=== PATIENT | female | born 1945 | race Caucasian/White ===

== ENCOUNTER 2021-05-15 17:27 | Inpatient (IN) ==
[2021-05-15 19:04] LABS: Basophils % 0.6 %; Hemoglobin 15.5 g/dL (11.5-15.4); Immature Granulocytes % 0.6 % (0-4); Lymphocytes # 0.6 K/mcL (0.6-4.6); Lymphocytes % 17.6 %; Mean Corpuscular HGB Conc 33.7 g/dL (31.6-35.5); Mean Corpuscular Volume 83.2 fL (83.0-100.0); Mean Platelet Volume 10.7 fL (9.4-12.4); Monocytes # 0.2 K/mcL (0.0-1.3); Monocytes % 6.3 %; Neutrophils # 2.6 K/mcL (1.6-8.9); Platelet Count 143 K/mcL (140-400); Red Blood Count 5.53 M/mcL (3.82-4.97); Red Cell Distribution Width 13.9 % (11.5-14.5); Segmented Neutrophils % 74.9 %; White Blood Count 3.5 K/mcL (4.3-11.1)
[2021-05-15 19:07] LABS: VBG HCO3 25 mEq/L (21-27); VBG PCO2 43 mmHg (41-51); VBG PH 7.37 pH Units (7.32-7.42); VBG PO2 34 mmHg (25-50)
[2021-05-15 19:11] LABS: INR 1.2; Prothrombin Time 13.5 Seconds (9.4-12.1)
[2021-05-15 19:14] LABS: Activated Partial Thrombo Time 32.1 Seconds (26.0-36.0)
[2021-05-15 19:28] LABS: Alanine Aminotransferase 11 Units/L (7-52); Albumin 3.9 g/dL (3.5-5.7); Albumin/Globulin Ratio 1.4 (1.1-2.2); Alkaline Phosphatase 79 Units/L (34-104); Aspartate Amino Transferase 22 Units/L (13-39); BUN/Creatinine Ratio 14 (6-26); Bilirubin,Direct 0.1 mg/dL (0.0-0.2); Bilirubin,Indirect 0.4 mg/dL (0.0-1.0); Bilirubin,Total 0.5 mg/dL (0.3-1.0); Blood Urea Nitrogen 16 mg/dL (8-23); Calcium 8.3 mg/dL (8.6-10.3); Carbon Dioxide 25 mEq/L (23-29); Chloride 99 mEq/L (98-107); Creatine Kinase 159 Units/L (30-223); Ethanol < 10 mg/dL (Less than 10); Globulin 2.8 g/dL (2.4-3.5); Glucose 114 mg/dL (70-105); Osmolality,Calculated 282 (280-300); Potassium 3.3 mEq/L (3.5-5.1); Sodium 135 mEq/L (136-145); Total Protein 6.7 g/dL (6.4-8.9); eGFR For African Americans 57 (> 60); eGFR For Non-African Americans 47 (> 60)
[2021-05-15] MEDS ORDERED: Isovue-370 500 ML BOTTLE IVP ONE (19:37)
[2021-05-15 19:47] LABS: Influenza A PCR Negative (Negative); Influenza B PCR Negative (Negative); Resp. Syncytial Virus PCR Negative (Negative)
[2021-05-15 19:49] LABS: SARS-CoV-2 by PCR (In House) Positive (Negative)
[2021-05-15 20:27] LABS: Adenovirus F 40/41 PCR Not detected (Not detect); Astrovirus PCR Not detected (Not detect); C.difficile Toxin A/B Gene PCR Not detected (Not detect); Campylobacter by PCR Not detected (Not detect); Cryptosporidium by PCR Not detected (Not detect); Cyclospora cayetanensis PCR Not detected (Not detect); E. coli O157 by PCR Not detected (Not detect); Entamoeba histolytica PCR Not detected (Not detect); Enteroaggregative E.coli(EAEC) Not detected (Not detect); Enteropathogenic E.coli(EPEC) Not detected (Not detect); Enterotoxigenic E.coli (ETEC) Not detected (Not detect); Giardia lamblia PCR Not detected (Not detect); Norovirus GI/GII PCR Not detected (Not detect); Plesiomonas shigelloides PCR Not detected (Not detect); Rotavirus A PCR Not detected (Not detect); Salmonella PCR Not detected (Not detect); Sapovirus PCR Not detected (Not detect); Shig/EnteroinvasiveE coli EIEC Not detected (Not detect); Shigalike tox-prod E coli STEC Not detected (Not detect); Vibrio PCR Not detected (Not detect); Vibrio cholerae PCR Not detected (Not detect); Yersinia enterocolitica PCR Not detected (Not detect)
[2021-05-15 21:50] LABS: Bilirubin,Urine Negative (Negative); Blood,Urine Large (Negative); Clarity,Urine Clear (Clear); Color,Urine Yellow (Yellow); Glucose,Urine (UA) Normal (Normal); Ketones,Urine 15 mg/dL (Negative); Leukocyte Esterase,Urine Trace (Negative); Nitrite,Urine Negative (Negative); Protein,Urine 30 mg/dL (Neg-Trace); Specific Gravity,Urine <= 1.005 (1.010-1.025); Urobilinogen,Urine Normal (Normal)
[2021-05-15 21:54] LABS: Mucus,Urine Few per lpf (None-Few); RBC,Urine TNTC per hpf (0-3); Squamous Epithelial Cell,Urine Moderate per hpf (None-Few); WBC,Urine 30-50 per hpf (0-3)
[2021-05-15 22:01] LABS: Amphetamine Screen,Urine Negative ng/mL (Cutoff=1000); Barbiturate Screen,Urine Negative ng/mL (Cutoff=200); Benzodiazepines Screen,Urine Negative ng/mL (Cutoff=200); Cannabinoid Screen,Urine Negative ng/mL (Cutoff = 50); Cocaine Screen,Urine Negative ng/mL (Cutoff= 300); Opiate Screen,Urine Negative ng/mL (Cutoff=300); Phencyclidine Screen,Urine Negative ng/mL (Cutoff=25)
[2021-05-15] MEDS ORDERED: Aspirin 325 MG TABLET PO ONE (22:07)
[2021-05-15] MEDS ORDERED: Dexamethasone Sodium Phos/PF 10 MG/ML VIAL IVP ONE (22:09)
[2021-05-15] MEDS ORDERED: Melatonin 3 MG TABLET PO PRN (22:29)
[2021-05-15] MEDS ORDERED: Naloxone 0.4 MG/ML INJ IVP PRN (22:29)
[2021-05-15] MEDS ORDERED: *HR* Promethazine 25 MG/ML VIAL IM PRN (22:29)
[2021-05-15] MEDS ORDERED: *HR* HYDROcodone/Acet 5/325 mg TABLET PO PRN (22:29)
[2021-05-15] MEDS ORDERED: Ondansetron 4 MG/2 ML VIAL IVP PRN (22:29)
[2021-05-16] MEDS ORDERED: *HR* Heparin 5,000 UNIT/ML VIAL IVP ONE (00:43)
[2021-05-16] MEDS ORDERED: *HR* Heparin 5,000 UNIT/ML VIAL IVP PRN ×2 (00:43)
[2021-05-16] MEDS ORDERED: *HR* Metoprolol 5 MG/5 ML VIAL IVP ONE (00:46)
[2021-05-16] MEDS ORDERED: Perflutren Lipid Microsphere 1.3 ML in 0.9 % Sodium Chloride 8.7 ML IVP PRN (00:48)
[2021-05-16 01:14] LABS: Basophils % 0.3 %; Immature Granulocytes % 0.6 % (0-4); Monocytes # 0.2 K/mcL (0.0-1.3); Monocytes % 5.1 %; Red Cell Distribution Width 13.9 % (11.5-14.5); White Blood Count 3.3 K/mcL (4.3-11.1)
[2021-05-16 01:16] LABS: Hematocrit 42.4 % (35.3-44.9); Hemoglobin 14.2 g/dL (11.5-15.4); Immature Platelets 6.7 % (1.1-6.1); Lymphocytes # 0.7 K/mcL (0.6-4.6); Lymphocytes % 22.3 %; Mean Corpuscular HGB Conc 33.5 g/dL (31.6-35.5); Mean Corpuscular Hemoglobin 27.7 pg (28.0-33.3); Mean Corpuscular Volume 82.8 fL (83.0-100.0); Mean Platelet Volume 11.4 fL (9.4-12.4); Neutrophils # 2.4 K/mcL (1.6-8.9); Platelet Count 128 K/mcL (140-400); Red Blood Count 5.12 M/mcL (3.82-4.97); Segmented Neutrophils % 71.7 %
[2021-05-16 01:23] LABS: INR 1.2; Prothrombin Time 12.9 Seconds (9.4-12.1)
[2021-05-16 01:33] LABS: Albumin 3.6 g/dL (3.5-5.7); Albumin/Globulin Ratio 1.3 (1.1-2.2); Bilirubin,Direct 0.1 mg/dL (0.0-0.2); Bilirubin,Indirect 0.4 mg/dL (0.0-1.0); Bilirubin,Total 0.5 mg/dL (0.3-1.0); Globulin 2.8 g/dL (2.4-3.5); Total Protein 6.4 g/dL (6.4-8.9)
[2021-05-16 01:38] LABS: Alanine Aminotransferase 10 Units/L (7-52); Albumin 3.6 g/dL (3.5-5.7); Albumin/Globulin Ratio 1.3 (1.1-2.2); Alkaline Phosphatase 67 Units/L (34-104); Aspartate Amino Transferase 21 Units/L (13-39); BUN/Creatinine Ratio 19 (6-26); Bilirubin,Total 0.5 mg/dL (0.3-1.0); Blood Urea Nitrogen 18 mg/dL (8-23); C-Reactive Protein 98 mg/L (Less than 10); Calcium 7.9 mg/dL (8.6-10.3); Carbon Dioxide 22 mEq/L (23-29); Chloride 101 mEq/L (98-107); Globulin 2.7 g/dL (2.4-3.5); Glucose 111 mg/dL (70-105); Lactate Dehydrogenase 193 Units/L (140-271); Osmolality,Calculated 281 (280-300); Phosphorous 3.8 mg/dL (2.7-4.5); Potassium 3.4 mEq/L (3.5-5.1); Sodium 134 mEq/L (136-145); Total Protein 6.3 g/dL (6.4-8.9); Troponin I 0.69 ng/mL (< 0.04); eGFR For African Americans > 60 (> 60); eGFR For Non-African Americans 57 (> 60)
[2021-05-16] MEDS ORDERED: Remdesivir 200 MG in 0.9 % Sodium Chloride 100 ML IVPB ONE (02:00)
[2021-05-16] MEDS: Heparin 25,000 UNIT/250 ML 25,000 UNIT/250 ML IV.SOLN IVC SCH (02:10)
[2021-05-16 03:28] LABS: Ferritin 375 ng/mL (10-120)
[2021-05-16] MEDS: Azithromycin 500 MG in 0.9 % Sodium Chloride 250 ML IVPB SCH (04:13)
[2021-05-16] MEDS ORDERED: Dexamethasone Sodium Phos/PF 10 MG/ML VIAL IVP SCH (09:00)
[2021-05-16] MEDS ORDERED: cefTRIAXone 1,000 MG in Water for inj. (sterile) 10 ML IVP SCH (09:00)
[2021-05-16] MEDS ORDERED: Dexamethasone Sodium Phos/PF 10 MG/ML VIAL IVP ONE (11:20)
[2021-05-16] MEDS: Nicotine 21 MG PATCH.TD24 TD SCH (12:40)
[2021-05-16] MEDS: Remdesivir 100 MG in 0.9 % Sodium Chloride 100 ML IVPB SCH (23:54)
[2021-05-17] MEDS: Azithromycin 500 MG in 0.9 % Sodium Chloride 250 ML IVPB SCH (02:17)
[2021-05-17] MEDS ORDERED: Haloperidol Lactate 5 MG/ML VIAL IM ONE (03:49)
[2021-05-17 06:10] LABS: Basophils % 0.1 %; Hematocrit 41.7 % (35.3-44.9); Hemoglobin 13.8 g/dL (11.5-15.4); Immature Granulocytes % 0.7 % (0-4); Lymphocytes % 11.3 %; Mean Corpuscular HGB Conc 33.1 g/dL (31.6-35.5); Mean Corpuscular Hemoglobin 27.2 pg (28.0-33.3); Mean Corpuscular Volume 82.1 fL (83.0-100.0); Mean Platelet Volume 11.3 fL (9.4-12.4); Monocytes # 0.6 K/mcL (0.0-1.3); Monocytes % 5.4 %; Neutrophils # 9.1 K/mcL (1.6-8.9); Platelet Count 178 K/mcL (140-400); Red Blood Count 5.08 M/mcL (3.82-4.97); Segmented Neutrophils % 82.5 %
[2021-05-17 06:12] LABS: Lymphocytes # 1.2 K/mcL (0.6-4.6)
[2021-05-17 06:31] LABS: Alanine Aminotransferase 17 Units/L (7-52); Albumin 3.7 g/dL (3.5-5.7); Albumin/Globulin Ratio 1.6 (1.1-2.2); Alkaline Phosphatase 64 Units/L (34-104); Aspartate Amino Transferase 34 Units/L (13-39); BUN/Creatinine Ratio 39 (6-26); Bilirubin,Direct 0.1 mg/dL (0.0-0.2); Bilirubin,Indirect 0.3 mg/dL (0.0-1.0); Bilirubin,Total 0.4 mg/dL (0.3-1.0); Blood Urea Nitrogen 36 mg/dL (8-23); Calcium 8.3 mg/dL (8.6-10.3); Carbon Dioxide 27 mEq/L (23-29); Chloride 102 mEq/L (98-107); Globulin 2.3 g/dL (2.4-3.5); Glucose 111 mg/dL (70-105); Magnesium 2.2 mg/dL (1.6-2.6); Osmolality,Calculated 293 (280-300); Phosphorous 3.2 mg/dL (2.7-4.5); Potassium 3.5 mEq/L (3.5-5.1); Sodium 137 mEq/L (136-145); eGFR For African Americans > 60 (> 60); eGFR For Non-African Americans 58 (> 60)
[2021-05-17] MEDS ORDERED: levoFLOXacin 750 MG TABLET PO SCH (09:00)
[2021-05-17] MEDS: Furosemide 20 MG/2 ML VIAL IVP SCH (09:33)
[2021-05-17] MEDS: Dexamethasone Sodium Phos/PF 10 MG/ML VIAL IVP SCH (09:33)
[2021-05-17] MEDS: Heparin 25,000 UNIT/250 ML 25,000 UNIT/250 ML IV.SOLN IVC SCH (09:52)
[2021-05-17] MEDS: Acetaminophen 325 MG TABLET PO PRN (16:57)
[2021-05-17] MEDS: Nicotine 21 MG PATCH.TD24 TD SCH ×2 (18:01→22:21)
[2021-05-17] MEDS: QUEtiapine Fumarate 25 MG TABLET PO SCH (22:17)
[2021-05-18] MEDS: Acetaminophen 325 MG TABLET PO PRN (00:27)
[2021-05-18] MEDS: Remdesivir 100 MG in 0.9 % Sodium Chloride 100 ML IVPB SCH (00:27)
[2021-05-18] MEDS: *HR* Enoxaparin 40 MG/0.4 ML SYRINGE SQ SCH (05:58)
[2021-05-18 11:19] LABS: Fibrinogen 375 mg/dL (169-393)
[2021-05-18] MEDS: Dexamethasone Sodium Phos/PF 10 MG/ML VIAL IVP SCH (11:30)
[2021-05-18] MEDS: Furosemide 20 MG/2 ML VIAL IVP SCH (11:31)
[2021-05-18 11:57] LABS: Alanine Aminotransferase 18 Units/L (7-52); Albumin 3.5 g/dL (3.5-5.7); Albumin/Globulin Ratio 1.5 (1.1-2.2); Alkaline Phosphatase 60 Units/L (34-104); Aspartate Amino Transferase 29 Units/L (13-39); BUN/Creatinine Ratio 39 (6-26); Bilirubin,Direct 0.2 mg/dL (0.0-0.2); Bilirubin,Indirect 0.3 mg/dL (0.0-1.0); Bilirubin,Total 0.5 mg/dL (0.3-1.0); Blood Urea Nitrogen 30 mg/dL (8-23); Calcium 8.6 mg/dL (8.6-10.3); Carbon Dioxide 27 mEq/L (23-29); Chloride 104 mEq/L (98-107); D-Dimer 350 ng/mLFEU (0-500); Globulin 2.3 g/dL (2.4-3.5); Glucose 166 mg/dL (70-105); Lactate Dehydrogenase 252 Units/L (140-271); Magnesium 2.4 mg/dL (1.6-2.6); Osmolality,Calculated 298 (280-300); Phosphorous 2.8 mg/dL (2.7-4.5); Potassium 3.2 mEq/L (3.5-5.1); Sodium 139 mEq/L (136-145); Total Protein 5.8 g/dL (6.4-8.9); eGFR For African Americans > 60 (> 60); eGFR For Non-African Americans > 60 (> 60)
[2021-05-18 12:12] LABS: Ferritin 533 ng/mL (10-120)
[2021-05-18] MEDS ORDERED: levoFLOXacin 750 MG TABLET PO SCH (17:00)
[2021-05-18] MEDS: QUEtiapine Fumarate 25 MG TABLET PO SCH (20:30)
[2021-05-19] MEDS: Remdesivir 100 MG in 0.9 % Sodium Chloride 100 ML IVPB SCH (00:29)
[2021-05-19] MEDS: *HR* Enoxaparin 40 MG/0.4 ML SYRINGE SQ SCH (05:35)
[2021-05-19 07:12] VITALS: BP 113/64; PULSE 75; TEMP 97.6
[2021-05-19 07:22] LABS: Alanine Aminotransferase 19 Units/L (7-52); Albumin 3.4 g/dL (3.5-5.7); Albumin/Globulin Ratio 1.4 (1.1-2.2); Alkaline Phosphatase 59 Units/L (34-104); Aspartate Amino Transferase 24 Units/L (13-39); BUN/Creatinine Ratio 38 (6-26); Bilirubin,Direct 0.2 mg/dL (0.0-0.2); Bilirubin,Indirect 0.4 mg/dL (0.0-1.0); Bilirubin,Total 0.6 mg/dL (0.3-1.0); Blood Urea Nitrogen 26 mg/dL (8-23); Calcium 8.5 mg/dL (8.6-10.3); Carbon Dioxide 27 mEq/L (23-29); Chloride 102 mEq/L (98-107); Globulin 2.4 g/dL (2.4-3.5); Glucose 111 mg/dL (70-105); Magnesium 2.3 mg/dL (1.6-2.6); Osmolality,Calculated 289 (280-300); Phosphorous 2.9 mg/dL (2.7-4.5); Potassium 3.4 mEq/L (3.5-5.1); Sodium 137 mEq/L (136-145); Total Protein 5.8 g/dL (6.4-8.9); eGFR For African Americans > 60 (> 60); eGFR For Non-African Americans > 60 (> 60)
[2021-05-19] MEDS ORDERED: levoFLOXacin 750 MG TABLET PO SCH (09:00)
[2021-05-19] MEDS ORDERED: Dexamethasone Sodium Phos/PF 10 MG/ML VIAL IVP SCH (09:00)
[2021-05-19] MEDS: Nicotine 21 MG PATCH.TD24 TD SCH (09:34)
[2021-05-19] MEDS: Furosemide 20 MG/2 ML VIAL IVP SCH (09:34)
[2021-05-19 10:59] VITALS: O2SAT 95
== END 2021-05-19 14:13 | disposition home or self-care (01) | DRG 177 ==
LOC: EMEROOARM 17:27 → 3NENU 17:27 → SUATTDRO 22:23 → 3NENU 23:20 → SUATTDRO 05-16 11:24
PROVIDERS: ADMIT Internal Medicine; ATTEND Family Medicine